=== PATIENT | male | born 1960 | race Caucasian/White ===

== ENCOUNTER 2018-07-01 22:31 | Emergency (ER) | payer MEDICAID ==
[2018-07-01] MEDS ORDERED: Ketorolac 10 MG Tab PO ONE (22:32)
--- NOTE | 2018-07-01 23:11 | EDM.PDOC ---
ED [facility] GENERAL MEDICAL PROBLEM - General Chief Complaint: Lower Extremity Injury/Pain Stated Complaint: KNEE PAIN Time Seen by Provider: 07/01/18 22:50 Source of Information: Reports: Patient History Limitations: Reports: No Limitations - History of Present Illness INITIAL COMMENTS - FREE TEXT/NARRATIVE: States that about 1900 this evening that his right knee felt like it gave out after he turned. States that he was walking on uneven concrete when he was felt that it gave out. Has been weight bearing on it since it happened. He denies any pain while not weight bearing. "my calf feels tight". Does have any swelling to the calf. Did not fall on it. Denies any swelling or redness noted. Has not had any problem with it previously. Has not iced it or taken any antiinflammatory previous to coming in. Onset: Today Location: Reports: Lower Extremity, Right Quality: Reports: Other (see HPI) - Related Data Allergies Allergy/AdvReac Type Severity Reaction Status Date / Time No Known Allergies Allergy Verified 07/01/18 22:32 Home Meds: Home Meds . [No Known Home Meds] 07/01/18 [History] Past Medical History Respiratory History: Reports: Pneumonia, Recurrent Gastrointestinal History: Reports: Other (See Below) Other Gastrointestinal History: INGUINAL HERNIA - Past Surgical History GI Surgical History: Reports: Hernia Repair/Other Social & Family History - Family History Family Medical History: Noncontributory - Tobacco Use Smoking Status *Q: Current Every Day Smoker Years of Tobacco use: 30 Packs/Tins Daily: 2 - Caffeine Use Caffeine Use: Reports: Coffee, Soda - Recreational Drug Use Recreational Drug Use: No Review of Systems - Review of Systems Review Of Systems: See Below Musculoskeletal: Reports: Joint Pain. Denies: Joint Swelling Skin: Denies: Erythema, Wound ED EXAM, GENERAL - Physical Exam Exam: See Below Exam Limited By: No Limitations General Appearance: Alert, Mild Distress Extremities: Normal Inspection, Normal Range of Motion, Non-Tender (with ROM), No Pedal Edema, Normal Capillary Refill, Other (No calf swelling, or redness noted.). No: Increased Warmth, Redness Neurological: Alert, Oriented Skin Exam: Warm, Dry, Intact Course - Vital Signs Last Recorded V/S: Last Vital Signs Temp 97.6 F 07/01/18 22:33 Pulse 76 09/19/18 22:33 Resp 20 07/01/18 22:33 BP 173/85 H 07/01/18 22:33 Pulse Ox 96 07/01/18 22:33 - Orders/Labs/Meds Orders: Active Orders 24 hr Category Date Time Status Knee 3V Rt [CR] Stat Exams 07/01/18 22:43 Ordered Departure - Departure Time of Disposition: 23:14 Disposition: Home, Self-Care 01 Condition: Good Clinical Impression: Sprain of knee - Discharge Information *PRESCRIPTION DRUG MONITORING PROGRAM REVIEWED*: Not Applicable *COPY OF PRESCRIPTION DRUG MONITORING REPORT IN PATIENT MICHAEL: Not Applicable Instructions: Knee Sprain, Adult, [id number] Additional Instructions: Take toradol 10 mg take 1 tablet every 8 hours as needed for discomfort or swelling. Ice to knee for any swelling as needed Elevate leg if any swelling noted If pain does not improve then can try Physical therapy. Call the clinic and talk to my nurse to arrange Weight bearing as normal. Stop in the clinic next week for BP recheck. - Problem List & Annotations (1) Sprain of knee SNOMED Code(s): 50751117 Code(s): S83.90XA - SPRAIN OF UNSPECIFIED SITE OF UNSPECIFIED KNEE, INIT ENCNTR Status: Acute Priority: High Current Visit: Yes - Problem List Review Problem List Initiated/Reviewed/Updated: Yes - My Orders Last 24 Hours: My Active Orders 07/01/18 22:43 Knee 3V Rt [CR] Stat - Assessment/Plan Last 24 Hours: My Active Orders 07/01/18 22:43 Knee 3V Rt [CR] Stat
[2018-07-01] MEDS ORDERED: Take Home: Ketorolac 10 MG Tab, 4 Tab Pack PO ONE (23:15)
== END 2018-07-01 23:28 | disposition home or self-care (01) ==
LOC: CC.ED 22:31
DX: S83.91XA Sprain of unspecified site of right knee, initial encounter (principal); F17.210 Nicotine dependence, cigarettes, uncomplicated; X58.XXXA Exposure to other specified factors, initial encounter
CPT/HCPCS: 73562; 99283; A9270